=== PATIENT | male | born 1995 | race Caucasian/White ===

== ENCOUNTER 2022-01-30 11:59 | Emergency (ER) | payer BC ==
[~2022-01-30] VITALS: Ht 167.6 cm; Wt 91.0 kg
[2022-01-30 12:19] VITALS: BP 132/78
[2022-01-30] MEDS ORDERED: LORAZEPAM 2MG/ML CPJ IM ONE (13:45)
[2022-01-30] MEDS ORDERED: KETOROLAC 60MG/2ML VIAL IM ONE (14:45)
[2022-01-30] MEDS ORDERED: NAPR-681 MT (16:03)
== END 2022-01-30 16:30 | disposition home or self-care (01) ==
LOC: ER 11:59
DX: S83.094A Other dislocation of right patella, initial encounter (principal); X58.XXXA Exposure to other specified factors, initial encounter; Y93.89 Activity, other specified; Y92.9 Unspecified place or not applicable
CPT/HCPCS: 96372; 99284; J1885; J2060; L1830; Z7610